=== PATIENT | female | born 1975 | race Caucasian/White ===

== ENCOUNTER 2019-01-17 12:02 | Emergency (ER) | payer OTHER ==
[2019-01-17 12:44] VITALS: RESP 18
--- NOTE | 2019-01-17 13:06 | ED PDOC ---
HPI: Abdomen Time Seen by Provider: 01/17/19 12:46 Chief Complaint (Nursing): Abdominal Pain Chief Complaint (Provider): Abdominal Pain History Per: Patient History/Exam Limitations: no limitations Onset/Duration Of Symptoms: Days (x5) Current Symptoms Are (Timing): Still Present Associated Symptoms: denies: Fever, Vomiting, Diarrhea, Urinary Symptoms Additional Complaint(s): 43 year old female, with no past medical history, presents to the ED with generalized abdominal pain since Sunday which has now become more predominant lower abdominal pain. Pain was initially associated with vomiting and diarrhea which have since subsided. Patient denies blood in diarrhea or vomitus. She also denies fever or urinary symptoms. LMP was December 24. Patient was referred from urgent care to r/o appendicitis. PMD: Kassi Smiley Past Medical History Reviewed: Historical Data, Nursing Documentation, Vital Signs Vital Signs: Last Vital Signs Temp 97.4 F L 01/17/19 12:43 Pulse 71 01/17/19 12:43 Resp 18 01/17/19 12:43 BP 145/76 01/17/19 12:43 Pulse Ox 100 01/17/19 12:43 - Medical History PMH: No Chronic Diseases - Surgical History Surgical History: No Surg Hx - Family History Family History: States: Unknown Family Hx - Home Medications Home Medications: Ambulatory Orders Medication Instructions Recorded Dicyclomine [Dicyclomine HCl] 10 mg PO Q8 #10 cap 01/17/19 Metronidazole [Flagyl] 500 mg PO Q8 #30 tablet 01/17/19 Sulfamethoxazole/Trimethoprim 1 tab PO BID #20 tab 01/17/19 [Bactrim DS 800 mg-160 mg] - Allergies Allergies/Adverse Reactions: Allergies Allergy/AdvReac Type Severity Reaction Status Date / Time hazelnut Allergy ANAPHYLAXIS Verified 01/17/19 12:41 Review of Systems ROS Statement: Except As Marked, All Systems Reviewed And Found Negative Constitutional: Negative for: Fever Gastrointestinal: Positive for: Abdominal Pain (lower). Negative for: Vomiting, Diarrhea Genitourinary Female: Negative for: Dysuria, Hematuria Physical Exam - Reviewed Nursing Documentation Reviewed: Yes Vital Signs Reviewed: Yes - Physical Exam Appears: Positive for: No Acute Distress Head Exam: Positive for: ATRAUMATIC, NORMOCEPHALIC Skin: Positive for: Normal Color, Warm, Dry Eye Exam: Positive for: Normal appearance Neck: Positive for: Normal, Painless ROM Cardiovascular/Chest: Positive for: Regular Rate, Rhythm Respiratory: Positive for: Normal Breath Sounds. Negative for: Wheezing, Respiratory Distress Gastrointestinal/Abdominal: Positive for: Soft, Tenderness (lower quadrants bilaterally). Negative for: Guarding, Rebound Extremity: Positive for: Normal ROM Neurological/Psych: Positive for: Awake, Alert, Normal Tone - Laboratory Results Result Diagrams: 01/17/19 13:15 01/17/19 13:15 - ECG O2 Sat by Pulse Oximetry: 100 (RA) Pulse Ox Interpretation: Normal Medical Decision Making Medical Decision Making: Initial Impression: Abdominal pain Initial Plan: Will obtain CT abd/pelvis as well as bloodwork. Appendicitis less likely. Inflammatory bowel more likely but will review CT results. Scribe Attestation: Documented by Reed Urban acting as a scribe for Moises Honeycutt MD. Provider Scribe Attestation: All medical record entries made by the Scribe were at my direction and personally dictated by me. I have reviewed the chart and agree that the record accurately reflects my personal performance of the history, physical exam, medical decision making, and the department course for this patient. I have also personally directed, reviewed, and agree with the discharge instructions and disposition. Disposition - Clinical Impression Clinical Impression: Colitis - Patient ED Disposition Is Patient to be Admitted: No Counseled Patient/Family Regarding: Studies Performed, Diagnosis, Need For Followup, Rx Given - Disposition Referrals: Gaston Hidalgo MD [Staff Provider] - Disposition: Routine/Home Disposition Time: 18:08 Condition: FAIR Prescriptions: Dicyclomine [Dicyclomine HCl] 10 mg PO Q8 #10 cap Metronidazole [Flagyl] 500 mg PO Q8 #30 tablet Sulfamethoxazole/Trimethoprim [Bactrim DS 800 mg-160 mg] 1 tab PO BID #20 tab Instructions: Colitis Forms: tarpipe (Tristanian)
[2019-01-17 13:38] LABS: BASO % 0.5 % (0.0-2.0); EOS % 0.1 % (0.0-4.0); HEMOGLOBIN 14.7 g/dL (12.0-16.0); LYMPH # 1.3 K/uL (1.0-4.3); LYMPH % 21.3 % (20.0-40.0); MEAN CELL VOLUME 91.1 fl (81.0-99.0); MEAN CORPUSCULAR HEMOGLOBIN 31.1 pg (27.0-31.0); MEAN CORPUSCULAR HGB CONC 34.1 g/dL (33.0-37.0); MEAN PLATELET VOLUME 9.9 fl (7.2-11.7); MONO # 0.7 K/uL (0.0-0.8); MONO % 10.9 % (0.0-10.0); NEUT # 4.1 K/uL (1.8-7.0); NEUT % 67.2 % (50.0-75.0); NRBC % 0.1 % (0.0-0.0); RBC 4.73 Mil/uL (3.80-5.20); RED CELL DISTRIBUTION WIDTH 12.9 % (11.5-14.5); WHITE BLOOD COUNT 6.1 K/uL (4.8-10.8)
[2019-01-17 14:03] LABS: ALB/GLOB RATIO 1.3 (1.0-2.1); ALBUMIN 4.1 g/dL (3.5-5.0); ALT/SGPT 42 U/L (9-52); AST/SGOT 40 U/L (14-36); BLOOD UREA NITROGEN 15 mg/dl (7-17); CALCIUM 9.5 mg/dL (8.4-10.2); GFR NON-AFRICAN AMERICAN > 60
[2019-01-17] MEDS ORDERED: Iohexol 300 100 ML IJ ONE (15:44)
[2019-01-17] MEDS ORDERED: Sodium Chloride 0.9% 50 ML IV ONE (15:44)
--- NOTE | 2019-01-17 16:44 | CT ---
Date of service: 01/17/2019 PROCEDURE: CT Abdomen and Pelvis with contrast HISTORY: Five days of abdominal pain. No rebound no tenderness no elevated white count. Negative test (concurrent with this examination). COMPARISON: None. TECHNIQUE: Intravenous contrast dose: Radiation dose: Total exam DLP = <inf_radiation_dlp> mGy-cm. This CT exam was performed using one or more of the following dose reduction techniques: Automated exposure control, adjustment of the mA and/or kV according to patient size, and/or use of iterative reconstruction technique. FINDINGS: LOWER THORAX: Unremarkable. LIVER: Unremarkable. No gross lesion or ductal dilatation. GALLBLADDER AND BILE DUCTS: Unremarkable. PANCREAS: Unremarkable. No gross lesion or ductal dilatation. SPLEEN: Unremarkable. ADRENALS: Unremarkable. No mass. KIDNEYS AND URETERS: Unremarkable. No hydronephrosis. No solid mass. VASCULATURE: Unremarkable. No aortic aneurysm. No atherosclerotic calcification or mural plaque present. BOWEL: Short segmental colitis primarily affecting the sigmoid. No free air or drainable collection. No evidence of mechanical obstruction. APPENDIX: A normal appendix is visualized in it's entirety. PERITONEUM: Trace free fluid identified in the pelvis/cul de sac. No free air. LYMPH NODES: Unremarkable. No enlarged lymph nodes. BLADDER: Unremarkable. REPRODUCTIVE: Left adnexal cyst 3.5 x 3.6 cm. BONES: No acute fracture. OTHER FINDINGS: None. IMPRESSION: Short segment sigmoid colitis. Large left adnexal cyst. Trace free fluid identified in the pelvis/cul de sac. Communication of results: I discussed findings directly with the attending physician in the emergency department Dr. Honeycutt who kindly provided relevant clinical information described above.
[2019-01-17 17:57] VITALS: BP 125/61; PULSE 58; TEMP 98.5
[2019-01-17 18:11] VITALS: O2SAT 100
== END 2019-01-17 18:21 | disposition home or self-care (01) ==
LOC: H.ER 12:02
DX: K52.9 Noninfective gastroenteritis and colitis, unspecified (principal)
CPT/HCPCS: 74177; 80053; 81025; 85025; 99284; Q9967